=== PATIENT | male | born 1995 | race Hispanic/Latino ===

== ENCOUNTER 2022-09-03 20:31 | Emergency (ER) | payer OTHER ==
[2022-09-03] MEDS ORDERED: LIDOCAINE HCL 1% 20 ML VIAL INJ SCH (21:00)
[2022-09-03] MEDS ORDERED: DIPH,PERTUSS(ACELL),TET VAC/PF 0.5 ML VIAL IM ONE (21:00)
[2022-09-03] MEDS ORDERED: IBUP-1493 PO (21:30)
[2022-09-03] MEDS ORDERED: CEPH500B PO (21:30)
[2022-09-03 22:31] VITALS: BP 132/88
== END 2022-09-03 22:32 | disposition home or self-care (01) ==
LOC: EDH 20:31
DX: S01.01XA Laceration without foreign body of scalp, initial encounter (principal); Z79.899 Other long term (current) drug therapy; W22.03XA Walked into furniture, initial encounter; Y93.89 Activity, other specified; Y92.89 Other specified places as the place of occurrence of the external cause; Y99.8 Other external cause status
CPT/HCPCS: 12002; 90471; 90715